=== PATIENT | female | born 1965 | race Caucasian/White ===

== ENCOUNTER 2020-10-30 06:01 | Day surgery (SDC) | payer OTHER ==
--- NOTE | 2020-10-27 20:49 | NUR ---
COPY OF [facility] TESTING SENT TO OR FOR ANESTHESIA TO REVIEW. PT REPORTS "HAD COVID TEST AT [facility] THIS WEEK."
[~2020-10-30] VITALS: Ht 172.7 cm; Wt 87.5 kg
[2020-10-30 06:32] VITALS: BP 016/79
[2020-10-30 16:27] VITALS: BP 124/80
== END 2020-10-30 16:10 | disposition home or self-care (01) ==
LOC: DS 06:01 → OR 07:30 → DS 16:10
PROVIDERS: ATTEND Orthopaedic Surgery
DX: M17.11 Unilateral primary osteoarthritis, right knee (principal); E66.9 Obesity, unspecified; Z68.30 Body mass index [BMI] 30.0-30.9, adult
CPT/HCPCS: 94150; 97116-GP; C1713; C1776; J0131; J1170; J1885; J2175; J2250; J2405; J2704; J3010; J3370; J3490; J7120